=== PATIENT | female | born 1980 | race Caucasian/White ===

== ENCOUNTER 2017-06-23 21:14 | Inpatient (IN) | payer OTHER ==
[~2017-06-23] VITALS: Ht 162.6 cm; Wt 66.5 kg
[2017-06-23 21:19] VITALS: Ht 162.6 cm; Wt 66.5 kg
[2017-06-23] MEDS ORDERED: HYDROCODONE/APAP (5/325) TAB PO STA (23:18)
--- NOTE | 2017-06-23 23:18 | ERD ---
ER Documentation Chief Complaint Date/Time DATE: 06/23/17 TIME: 23:16 Chief Complaint vag bleed today x2 pads, pt was told by OBGYN she might have ectopic preg HPI this -1, presents to the ED 7 weeks vaginal bleeding and cramping. ROS All systems reviewed and are negative except as per history of present illness. Allergies Allergies: Coded Allergies: No Known Allergy (Unverified , 06/23/17) Physical Exam Vitals Vital Signs Date Time Temp Pulse Resp B/P Pulse Ox O2 Delivery O2 Flow Rate FiO2 06/24/17 02:50 98.1 72 18 141/91 94 Room Air 06/23/17 21:19 97.6 75 20 131/84 97 Physical Exam Const: Nourished well-appearing well-hydrated obvious discomfort no acute distress Head: Eyes: ENT: Neck: Resp: Clear to auscultation bilaterally rales wheezes or rhonchi Cardio: Regular rate and rhythm, no murmurs Abd: Soft, tenderness, no CVA tenderness Skin: Back: No midline or flank tenderness Ext: No cyanosis, or edema Neur: Awake and alert Psych: Normal Mood and Affect Result Diagram: 06/23/17 2330 Results 24 hrs Laboratory Tests Test 06/23/17 23:30 06/24/17 00:00 White Blood Count 10.510^3/ul Red Blood Count 4.0010^6/ul Hemoglobin 12.5g/dl Hematocrit 37.1% Mean Corpuscular Volume 92.8fl Mean Corpuscular Hemoglobin 31.3pg Mean Corpuscular Hemoglobin Concent 33.7g/dl Red Cell Distribution Width 12.9% Platelet Count 70566^3/UL Mean Platelet Volume 10.0fl Neutrophils % 75.0% Lymphocytes % 16.3% Monocytes % 6.2% Eosinophils % 1.6% Basophils % 0.5% Nucleated Red Blood Cells % 0.0/100WBC Neutrophils # 7.910^3/ul Lymphocytes # 1.710^3/ul Monocytes # 0.710^3/ul Eosinophils # 0.210^3/ul Basophils # 0.110^3/ul Nucleated Red Blood Cells # 0.010^3/ul Beta HCG, Quantitative 5878.2mIU/ml Urine Color YELLOW Urine Clarity SLIGHTLY CLOUDY Urine pH 5.0 Urine Specific [place] 1.025 Urine Ketones NEGATIVEmg/dL Urine Nitrite NEGATIVEmg/dL Urine Bilirubin NEGATIVEmg/dL Urine Urobilinogen NEGATIVEmg/dL Urine Leukocyte Esterase TRACELeu/ul Urine Microscopic RBC > 182/HPF Urine Microscopic WBC 8/HPF Urine Squamous Epithelial Cells FEW/HPF Urine Bacteria FEW/HPF Urine Mucus MODERATE/HPF Urine Hemoglobin 3+mg/dL Urine Glucose NEGATIVEmg/dL Urine Total Protein 1+mg/dl Current Medications Medications (Trade) Dose Ordered Sig/Mallory Route PRN Reason Start Time Stop Time Status Last Admin Dose Admin Acetaminophen/ Hydrocodone Bitart 1 tab 1 tab ONCE STAT PO 06/23/17 23:18 06/23/17 23:20 DC 06/24/17 00:27 Sodium Chloride (NS) 1,000 ml @ 150 mls/hr Q6H40M IV 06/24/17 01:58 06/24/17 08:37 Acetaminophen (Tylenol Tab) 650 mg ER BRIDGE PRN PO MILD PAIN/FEVER 06/24/17 02:00 06/25/17 01:59 Interpretation text CBC shows no evidence of hemorrhage or infection Beta HCG, Quantitative 5878.2mIU/m Analysis positive for trace leukocytes, microscopic hematuria, this is not an abnormal finding for vaginal bleeding. Positive proteins, no nitrates. Procedures/MDM ROCEDURE: ULTRASOUND OBSTETRICAL CLINICAL INDICATION: 37-year-old female with vaginal bleeding. TECHNIQUE: Multiple sonographic images of the pelvis were obtained utilizing a transabdominal and endovaginal technique. The images were reviewed on a PACS workstation. COMPARISON: None. FINDINGS: The endometrial echo complex is within normal limits and measures 5.9 mm. There is no sonographic evidence for an intrauterine gestation. There is no evidence for free fluid. The right ovary has a normal echotexture and measures 2.1 x 1.2 x 1.3 cm. The left ovary has a normal echotexture and measures 3.4 x 2.7 x 3.1 cm. There is a left ovarian cyst measuring 2.7 x 2.2 x 2.7 cm. There is flow identified within the ovaries bilaterally. There is a right adnexal mass measuring 2.1 x 1.6 x 2.3 cm without evidence for abnormal flow worrisome for an ectopic . IMPRESSION: CALL REPORT: A call report was made to [facility] ER SASHA Lora on June 24, 2017 at 01:14 a.m.. Electronically viewed and signed by .Hans Vance MD, on 06/24/2017 01:18 This 37-year-old female presents to emergency department for evaluation of vaginal bleeding. Patient is -1, 7 weeks started vaginal bleeding 2 days ago with increasing pain and discharge. Patient is not saturating peripads and is hemodynamically stable, emergency room course includes control with [place], Tylenol, IV fluids, try testing negative for anemia or bacterial infection, beta hCG quantitative 5878.2mIU/m. OB ultrasound : No sonographic evidence for an intrauterine gestation. Right adnexal mass suspicious for an ectopic . Clinical correlation is necessary. Left ovarian cyst. On-call labor is , report given, patient will be admitted, supervising physician notified, patient transferred to Main ED room 13. Patient is ambulatory, stable, able to walk to her new room. Med-Surg room pending Departure Diagnosis: Primary Impression: Ectopic Location of ectopic : tubal Intrauterine status: without intrauterine Qualified Code: O00.10 - Tubal without intrauterine Condition: Stable ITZEL ONEILL Jun 23, 2017 23:18
[2017-06-24] LABS: BASOPHIL # 0.1 10^3/ul (0.0-0.1); BASOPHILS % 0.5 % (0.0-2.0); EOSINOPHILS # 0.2 10^3/ul (0.0-0.5); EOSINOPHILS % 1.6 % (0.0-7.0); HEMATOCRIT 37.1 % (37.0-47.0); HEMOGLOBIN 12.5 g/dl (12.0-16.0); LYMPHOCYTES # 1.7 10^3/ul (0.8-2.9); LYMPHOCYTES % 16.3 % (15.0-51.0); MEAN CORPUSCULAR HEMOGLOBIN 31.3 pg (29.0-33.0); MEAN CORPUSCULAR HGB CONC 33.7 g/dl (32.0-37.0); MEAN CORPUSCULAR VOLUME 92.8 fl (82.0-101.0); MONOCYTE # 0.7 10^3/ul (0.3-0.9); MONOCYTES % 6.2 % (0.0-11.0); NEUTROPHIL # 7.9 10^3/ul (1.6-7.5); PLATELET COUNT 251 10^3/UL (140-415); RED CELL DISTRIBUTION WIDTH 12.9 % (11.5-14.5); WHITE BLOOD COUNT 10.5 10^3/ul (4.8-10.8)
[2017-06-24 00:53] LABS: ADD UMIC YES; UR ASCORBIC ACID 20 mg/dL (NEGATIVE); UR BACTERIA FEW /HPF (NONE SEEN); UR BILIRUBIN (Dip) NEGATIVE (NEGATIVE); UR BLOOD (Dip) 3+ mg/dL (NEGATIVE); UR CLARITY SLIGHTLY CLOUDY (CLEAR); UR COLOR YELLOW (YELLOW); UR GLUCOSE (Dip) NEGATIVE (NEGATIVE); UR KETONES (Dip) NEGATIVE (NEGATIVE); UR LEUKOCYTE ESTERASE (Dip) TRACE Leu/ul (NEGATIVE); UR MUCUS MODERATE /HPF (NONE SEEN); UR NITRITE (Dip) NEGATIVE (NEGATIVE); UR RBC > 182 /HPF (0-5); UR SPECIFIC GRAVITY (Dip) 1.025 (1.003-1.030); UR SQUAMOUS EPITHELIAL CELL FEW /HPF (FEW); UR TOTAL PROTEIN (Dip) 1+ mg/dl (NEGATIVE); UR UROBILINOGEN (Dip) NEGATIVE (NEGATIVE)
--- NOTE | 2017-06-24 01:19 | RADRPT ---
PROCEDURE: ULTRASOUND OBSTETRICAL CLINICAL INDICATION: 37-year-old female with vaginal bleeding. TECHNIQUE: Multiple sonographic images of the pelvis were obtained utilizing a transabdominal and endovaginal technique. The images were reviewed on a PACS workstation. COMPARISON: None. FINDINGS: The endometrial echo complex is within normal limits and measures 5.9 mm. There is no sonographic ev idence for an intrauterine gestation. There is no evidence for free fluid. The right ovary has a nor mal echotexture and measures 2.1 x 1.2 x 1.3 cm. The left ovary has a normal echotexture and measur es 3.4 x 2.7 x 3.1 cm. There is a left ovarian cyst measuring 2.7 x 2.2 x 2.7 cm. There is flow iden tified within the ovaries bilaterally. There is a right adnexal mass measuring 2.1 x 1.6 x 2.3 cm w ithout evidence for abnormal flow worrisome for an ectopic . IMPRESSION: 1. No sonographic evidence for an intrauterine gestation. 2. Right adnexal mass suspicious for an ectopic . Clinical correlation is necessary. 3. Left ovarian cyst. CALL REPORT: A call report was made to [facility] ER SASHA Lora on June 24, 2017 at 01:14 a. m.. .Hans Vance MD, MD Date Time Electronically viewed and signed by .Hans Vance MD, MD on 06/24/2017 01:18 .M/
[2017-06-24] MEDS ORDERED: SOD CHLORIDE 0.9% 1,000 ML IV SCH (01:58)
[2017-06-24] MEDS ORDERED: ACETAMINOPHEN 325 MG TAB PO PRN (02:00)
[2017-06-24 02:50] VITALS: TEMP 98.1
--- NOTE | 2017-06-24 03:39 | HP ---
Date/Time of Note Date/Time of Note DATE: 06/24/17 TIME: 03:35 Assessment/Plan VTE Prophylaxis VTE Prophylaxis Intervention: ambulation Lines/Catheters IV Catheter Type (from Nrs): Saline Lock Assessment/Plan Chief Complaint/Hosp Course Lower abdominal pain Discriminitory HCG, non IUP. ultrasound with evidence of RT adnexal mass, questionable for ECtopic No evidence of Hemoperitoneum Stable clinically Left simple ovarian cyst Discussed options of expectant management serial abdominal exam and labs and if stable can proceed with medical management with MTX with close follow up and moniotoring vs Surgical management Risks and benefits and pros and conse of each discussed Explained at HCG level above 5000 , with MTX likely she require more than one dose. Compliance with close follow up,serially with HCG until it is undetectable discussed Patient verbalized understanding Admit to the floor Serial Labs, Hb and vitals Will re evaluate again in am if remain stable . consider surgery if pain continues, anemia or unstable Problems: HPI/ROS Admit Date/Time Admit Date/Time June 24, 2017 Hx of Present Illness I was asked and consulted by ED provider to evaluate this patient for possible ectopic ROS 37-year-old with amenorrhea for 7 weeks and 4 days. She had a private OB/ DIRECTOR OF DISTRIBUTION admission [place] Dr. vann. Reports that had serum hCG done by her DIRECTOR OF DISTRIBUTION 2 days ago. Per patient her level was non-discriminatory and for that reason advised to repeat her serum hCG in 48 hours. She had her blood drawn today at [facility]. Results unavailable. Patient presents with complaint of lower abdominal pain and light bleeding and dizziness.. Her serum hCG today is 5000 range. Had a pelvic ultrasound that showed no evidence of IUP with right adnexal hypoechoic structure concerning for ectopic as well as left ovarian cyst. Past DIRECTOR OF DISTRIBUTION history significant for history of primary infertility for 4 and half years. Underwent 6 rounds of IUI and 2 rounds of IVF. She conceived once with IVF last years status post SAB. This is spontaneous that occurred after her last IVF in August 2016. Past medical history significant for history of hypertension, hypothyroidism As well as depression and anxiety. Subjective hx not possible: other Constitutional: no complaints Eyes: no complaints ENT: no complaints Respiratory: no complaints Cardiovascular: no complaints Gastrointestinal: pain Genitourinary: bleeding Musculoskeletal: no complaints Skin: no complaints Neurologic: no complaints Endocrine: no complaints Lymphatic: no complaints Psychological: no complaints Immunologic: no complaints PMH/Family/Social Past Medical History past medical history: 1. Hypertension 2. Hypothyroidism 3. Anxiety and depression Past Surgical History D&C for SAB Removal of uterine polyp Family History Significant Family History: diabetes Social History Alcohol Use: none Smoking Status: Never smoker Drug Use: none Exam/Review of Systems Vital Signs Vitals Vital Signs Date Time Temp Pulse Resp B/P Pulse Ox O2 Delivery O2 Flow Rate FiO2 06/24/17 02:50 98.1 72 18 141/91 94 Room Air Exam Constitutional: alert, distress, oriented, well developed Psych: nl mood/affect, no complaints Head: atraumatic, normocephalic Eyes: EOMI, nl conjunctiva, nl lids ENMT: nl external ears & nose Neck: supple Respiratory: clear to auscultation, normal air movement Cardiovascular: nl pulses, regular rate and rhythm Gastrointestinal: soft, tender (in the mid to left side of the abdomen, No rebound tenderness, no rigidity, no evidence of acute abdomen.) Musculoskeletal: nl extremities to inspection, nl gait and stance Extremities: normal pulses Neurological: SLOPE HOIST OPERATOR II-XII intact, nl mental status, nl speech, nl strength Skin: nl turgor Labs Result Diagram: 06/23/17 2330 Medications Medications Current Medications Sodium Chloride (NS) 1,000 ml @ 150 mls/hr Q6H40M IV Last administered on 06/24t 03:10; Admin Dose 150 MLS/HR; Start 06/24/17 at 01:58; Stop 06/24/17 at 08 :37 Procedures Procedures PROCEDURE: ULTRASOUND OBSTETRICAL CLINICAL INDICATION: 37-year-old female with vaginal bleeding. TECHNIQUE: Multiple sonographic images of the pelvis were obtained utilizing a transabdominal and endovaginal technique. The images were reviewed on a PACS workstation. COMPARISON: None. FINDINGS: The endometrial echo complex is within normal limits and measures 5.9 mm. There is no sonographic evidence for an intrauterine gestation. There is no evidence for free fluid. The right ovary has a normal echotexture and measures 2.1 x 1.2 x 1.3 cm. The left ovary has a normal echotexture and measures 3.4 x 2.7 x 3.1 cm. There is a left ovarian cyst measuring 2.7 x 2.2 x 2.7 cm. There is flow identified within the ovaries bilaterally. There is a right adnexal mass measuring 2.1 x 1.6 x 2.3 cm without evidence for abnormal flow worrisome for an ectopic . IMPRESSION: 1. No sonographic evidence for an intrauterine gestation. 2. Right adnexal mass suspicious for an ectopic . Clinical correlation is necessary. 3. Left ovarian cyst. ARMINDA JEFFREY MD Jun 24, 2017 03:39
[2017-06-24 04:15] VITALS: BP 153/82; PULSE 68; RESP 17
[2017-06-24] MEDS: LACTATED RINGER'S 1,000 ML IV SCH ×3 (04:39→19:52)
[2017-06-24] MEDS ORDERED: ONDANSETRON INJ 8 MG in DEXTROSE 5% 50 ML IV PRN (05:00)
[2017-06-24 05:39] LABS: ALBUMIN 4.1 g/dl (3.3-4.9); BILIRUBIN,INDIRECT 0.7 mg/dl (0-1.1); BILIRUBIN,TOTAL 0.7 mg/dl (0.2-1.3); TOTAL PROTEIN 6.6 g/dl (6.1-8.1)
[2017-06-24 05:40] LABS: CALCIUM 9.2 mg/dl (8.4-10.2); CREATININE 0.66 mg/dl (0.44-1.00); POTASSIUM 3.9 mmol/L (3.5-5.1)
[2017-06-24] MEDS: LEVOTHYROXINE 100 MCG TAB PO SCH (06:20)
[2017-06-24] MEDS ORDERED: FLUO40CA PO (07:43)
[2017-06-24] MEDS ORDERED: LABE200T3 PO (07:43)
[2017-06-24] MEDS ORDERED: LEVO100T87 PO (07:43)
[2017-06-24 07:54] VITALS: BP 125/74; RESP 18
[2017-06-24] MEDS: morphine 4 MG/ML VIAL IV PRN (09:31)
[2017-06-24] MEDS: LABETALOL 200 MG TAB PO SCH ×2 (10:52→21:00)
[2017-06-24] MEDS: FLUOXETINE 20 MG CAP PO SCH (11:21)
--- NOTE | 2017-06-24 11:52 | QN ---
Documentation Comment June 24, 2017 Hospital note and consult; This patient is 37 years old 2 para 0 with one ectopic and D& C on 2016. She was seen in emergency room and was admitted in the hospital due to suspicion of the of ectopic . The following is the brief description of her condition at admission: ( 37-year-old with amenorrhea for 7 weeks and 4 days. She had a private WEDGER MACHINE admission [place] Dr. vann. Reports that had serum hCG done by her [employer] WELDING MACHINE OPERATOR 2 days ago. Per patient her level was non-discriminatory and for that reason advised to repeat her serum hCG in 48 hours. She had her blood drawn today at [facility]. Results unavailable. Patient presents with complaint of lower abdominal pain and light bleeding and dizziness.. Her serum hCG today is 5000 range. Had a pelvic ultrasound that showed no evidence of IUP with right adnexal hypoechoic structure concerning for ectopic as well as left ovarian cyst. Past ARC WELDING MACHINE OPERATOR history significant for history of primary infertility for 4 and half years. Underwent 6 rounds of IUI and 2 rounds of IVF. She conceived once with IVF last years status post SAB. This is spontaneous that occurred after her last IVF in August 2016. Past medical history significant for history of hypertension, hypothyroidism As well as depression and anxiety.) We have one result of the beta hCG from last night which was 5000 international unit. When I examined her today she was having mild lower abdominal pain. Chest was clear to auscultation and percussion. Heart was normal sinus rhythm no murmur. No CVA tenderness. On pelvic examination she did have mild vaginal bleeding. Cervix was closed. Cervix has slight motion tenderness. It was somewhat difficult to actually palpate any pelvic mass . Ultrasound study today did show hypoechoic structure with high suspicious of ectopic on the right side and also left ovarian cyst was described. Her condition, the ultrasound report ,the lab finding and the suspicion of ectopic and need for surgical intervention or the methotrexate as an alternative management was discussed with patient in detail. She requested us to go ahead with surgery understanding that the tube containing ectopic may be removed which makes her possibility of future less likely . She is scheduled for surgery about 7:00 o'clock this evening. End of dictation , LORI ORTIZ MD Jun 24, 2017 11:52
[2017-06-24 14:00] VITALS: BP 142/80; RESP 18
[2017-06-24] MEDS ORDERED: MIDAZOLAM 1 MG/ML 2 ML INJ ONE (18:48)
[2017-06-24] MEDS ORDERED: PROPOFOL 20 ML ONE ×2 (18:48→20:17)
[2017-06-24] MEDS ORDERED: ROCURONIUM 50 MG INJ ONE (18:48)
[2017-06-24] MEDS ORDERED: METOCLOPRAMIDE 10 MG INJ ONE (18:48)
[2017-06-24] MEDS ORDERED: DIPHENHYDRAMINE 50 MG INJ IV PRN (20:30)
[2017-06-24] MEDS ORDERED: MEPERIDINE 25 MG INJ IV PRN (20:30)
[2017-06-24] MEDS ORDERED: LABETALOL HCL 20MG INJ IV PRN (20:30)
[2017-06-24] MEDS ORDERED: KETOROLAC 30 MG INJ IV PRN (20:30)
[2017-06-24] MEDS ORDERED: EPHEDrine SULFATE 50 MG/5 ML SYG IV PRN (20:30)
[2017-06-24] MEDS ORDERED: ONDANSETRON 4 MG INJ IV PRN (20:30)
[2017-06-24] MEDS ORDERED: FENTAnyl 50 MCG/ML VIAL IV PRN ×2 (20:30)
[2017-06-24] MEDS ORDERED: hydrALAzine 20 MG INJ IV PRN (20:30)
[2017-06-24] MEDS ORDERED: METOCLOPRAMIDE 10 MG INJ IV PRN (20:30)
[2017-06-24] MEDS ORDERED: HYDROmorphONE (0.2 MG/ML) 10ML SYG IV PRN ×3 (20:30)
[2017-06-24] MEDS ORDERED: OXYCODONE/ACETAMINOPHEN (5/325) TAB PO PRN ×2 (20:30)
[2017-06-24] MEDS ORDERED: DEXAMETHASONE 4 MG/ML 1 ML INJ ONE (22:12)
[2017-06-24] MEDS ORDERED: BUPIVACAINE 0.25% (MPF) 10 ML 10 ML VIAL ONE (23:46)
[2017-06-24] MEDS ORDERED: ONDANSETRON 4 MG INJ ONE (23:53)
[2017-06-24] MEDS ORDERED: KETOROLAC 30 MG INJ ONE (23:58)
[2017-06-25] VITALS (20 sets, daily range): BP systolic 111–129; BP diastolic 55–76; PULSE 68–88; RESP 13–21
[2017-06-25] MEDS ORDERED: OXYCODONE/ACETAMINOPHEN (5/325) TAB PO PRN
[2017-06-25] MEDS ORDERED: morphine 2 MG INJ IV PRN
--- NOTE | 2017-06-25 00:21 | OPPN ---
Date/Time of Note Date/Time of Note DATE: 06/25/17 TIME: 00:10 Operative Report Preoperative Diagnosis June 25, 2017 Operative report Preoperative diagnosis possible ectopic Postoperative diagnosis rupture ectopic right salpinx Estimated blood loss about 250 cc Anesthesia general Postoperative Diagnosis same Operation/Procedure Performed Under satisfactory general anesthesia patient was placed in lithotomy position vaginal and abdominal area were prepped and patient was draped. Hoff catheter was placed . Abdominal and genital area was prepped and patient was draped. A bimanual pelvic examination was performed : the uterus appears to be top normal size ,no major adnexal mass was palpated At this time the weighted speculum was placed inside the vagina and anterior lip of the cervix was grasped with tenaculum. Uterine cavity sounded to about 6 cm and a HUMI catheter was inserted and it was inflated with 8 cc of water. At this time the gloves were changed and the procedure continued abdominally by making a small incision at the lower aspect of umbilical area thorough this incision a Veress needle were inserted in the peritoneal cavity and abdominal cavity was insufflated with about 3-1/2 L of gas .. Through the small incision at the umbilical area as well as suprapubic area 2 5 mm trocar were inserted followed by insertion of grasper and the light. In visualizing the abdominal cavity there was evidence of ruptured ectopic with a fairly large amount of blood clots.It appeared the ectopic was in the right tube very near the corner of the uterus . After suctioning the blood clots and irrigation ;at the insertion of the right tube to the cornua of uterus the tissues were cauterized and then they were clipped and cut repeatedly the tube with the ectopic . An attempt was made not to disturb the the blood supply to the ovary in the side. Ovary itself on both sides appear to be normal. The mesosalpinx were cut coagulated The irrigation was performed, blood clots were removed .A thorough inspection was performed to make sure there is no further bleeding at the site of the incision and cornua. The specimen was removed and sent for pathological examination. Then using a Vicryl suture the site of 2 mm incision were approximated. All of the instrument was removed and the incision site was sutured with 4-0 Monocryl. Local l anesthetic was used to control postoperative pain . Hoff catheter was removed and patient was transferred to the recovery room in good and stable condition The specimen was sent for pathology for examination. 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 Anesthesia: general Estimated blood loss: 200 - 250 ml's Transfusion Required none Specimen left salpinx Current Medications Medications (Trade) Dose Ordered Sig/Mallory Route PRN Reason Start Time Stop Time Status Last Admin Dose Admin Acetaminophen/ Hydrocodone Bitart 1 tab 1 tab ONCE STAT PO 06/23/17 23:18 06/23/17 23:20 DC 06/24/17 00:27 Sodium Chloride (NS) 1,000 ml @ 150 mls/hr Q6H40M IV 06/24/17 01:58 06/24/17 08:37 DC 06/24/17 03:10 Acetaminophen 650 mg 650 mg ER BRIDGE PRN PO MILD PAIN/FEVER 06/24/17 02:00 06/25/17 01:59 DC Lactated Ringer's (Lr) 1,000 ml @ 125 mls/hr Q8H IV 06/24/17 03:52 06/25/17 13:23 DC 06/24/17 12:13 Labetalol HCl 200 mg 200 mg BID PO 06/24/17 09:00 06/25/17 13:23 DC 06/25/17 08:55 Ondansetron HCl/ Dextrose (Zofran Inj/D5W) 54 ml @ 108 mls/hr Q8H PRN IV NAUSEA AND/OR VOMITING 06/24/17 05:00 06/25/17 13:23 DC Morphine Sulfate (morphine) 3 mg Q3H PRN IV PAIN 06/24/17 05:00 06/25/17 13:23 DC 06/25/17 01:39 Fluoxetine HCl (Prozac) 40 mg DAILY PO 06/24/17 09:00 06/25/17 13:23 DC 06/25/17 08:54 Levothyroxine Sodium (Synthroid) 100 mcg DAILY@06 PO 06/24/17 06:00 06/25/17 13:23 DC 06/25/17 05:30 Rocuronium [place] 50 mg 50 mg STK-MED ONCE .ROUTE 06/24/17 18:48 06/24/17 18:49 DC Propofol (Diprivan) 20 ml @ ud STK-MED ONCE .ROUTE 06/24/17 18:48 06/24/17 18:49 DC Midazolam HCl (Versed) 2 mg STK-MED ONCE .ROUTE 06/24/17 18:48 06/24/17 18:49 DC Metoclopramide HCl 10 mg 10 mg STK-MED ONCE .ROUTE 06/24/17 18:48 06/24/17 18:49 DC Propofol 20 ml @ ud STK-MED ONCE .ROUTE 06/24/17 20:17 06/24/17 20:18 DC Fentanyl (Sublimaze) 5 ml @ ud STK-MED ONCE .ROUTE 06/24/17 20:18 06/24/17 20:19 DC Hydromorphone HCl (Dilaudid (Rec)) 0.2 mg PACU ORDER PRN IV MILD PAIN LEVEL 1-3 06/24/17 20:30 06/25/17 01:00 DC Hydromorphone HCl (Dilaudid (Rec)) 0.4 mg PACU ORDER PRN IV MODERATE PAIN LEVEL 4-6 06/24/17 20:30 06/25/17 01:00 DC Hydromorphone HCl (Dilaudid (Rec)) 0.6 mg PACU ORDER PRN IV SEVERE PAIN LEVEL 7-10 06/24/17 20:30 06/25/17 01:00 DC Fentanyl (Sublimaze) 25 mcg PACU ORDER PRN IV MILD PAIN LEVEL 1-3 06/24/17 20:30 06/25/17 01:00 DC Fentanyl (Sublimaze) 50 mcg PACU ODER PRN IV MODERATE PAIN LEVEL 4-6 06/24/17 20:30 06/25/17 01:00 DC 06/25/17 00:38 Fentanyl (Sublimaze) 75 mcg PACU ORDER PRN IV SEVERE PAIN LEVEL 7-10 06/24/17 20:30 06/25/17 01:00 DC Ketorolac Tromethamine (Toradol) 30 mg PACU ORDER PRN IV FOR PAIN AFTER IV NARCOTIC MED 06/24/17 20:30 06/25/17 01:00 DC 06/25/17 00:32 Oxycodone/ Acetaminophen (Percocet (5/ 325)) 1 tab PACU ORDER PRN PO PAIN LEVEL 1-5 06/24/17 20:30 06/25/17 01:00 DC Oxycodone/ Acetaminophen (Percocet (5/ 325)) 2 tab PACU ORDER PRN PO PAIN LEVEL 6-10 06/24/17 20:30 06/25/17 01:00 DC Ondansetron HCl (Zofran Inj) 4 mg PACU ORDER PRN IV NAUSEA AND/OR VOMITING 06/24/17 20:30 06/25/17 01:00 DC 06/25/17 00:32 Metoclopramide HCl (Reglan) 10 mg PACU ORDER PRN IV NAUSEA AND/OR VOMITING 06/24/17 20:30 06/25/17 01:00 DC Labetalol HCl (Labetalol) 5 mg PACU ORDER PRN IV HIGH BLOOD PRESSURE 06/24/17 20:30 06/25/17 01:00 DC Hydralazine HCl (Apresoline) 5 mg PACU ORDER PRN IV HIGH BLOOD PRESSURE 06/24/17 20:30 06/25/17 01:00 DC Ephedrine Sulfate 5 mg PACU ORDER PRN IV MAP LESS THAN 60 06/24/17 20:30 06/25/17 01:00 DC Meperidine HCl (Demerol) 25 mg PACU ORDER PRN IV POST-OP RIGORS 06/24/17 20:30 06/25/17 01:00 DC Diphenhydramine HCl (Benadryl) 25 mg PACU ORDER PRN IV PRURITUS 06/24/17 20:30 06/25/17 01:00 DC Dexamethasone (Decadron) 4 mg STK-MED ONCE .ROUTE 06/24/17 22:12 06/24/17 22:13 DC Bupivacaine HCl (Marcaine 0.25% (Mpf) 10 ml) 30 ml STK-MED ONCE .ROUTE 06/24/17 23:46 06/24/17 23:47 DC 06/25/17 00:02 Ondansetron HCl (Zofran Inj) 4 mg STK-MED ONCE .ROUTE 06/24/17 23:53 06/24/17 23:54 DC Ketorolac Tromethamine 30 mg 30 mg STK-MED ONCE .ROUTE 06/24/17 23:58 06/24/17 23:59 DC Dextrose/Sodium Chloride (D5-1/2ns) 1,000 ml @ 125 mls/hr Q8H IV 06/25/17 00:00 06/25/17 13:23 DC 06/25/17 08:57 Oxycodone/ Acetaminophen (Percocet (5/ 325)) 1 tab Q4H PRN PO PAIN 06/25/17 00:00 06/25/17 13:23 DC 06/25/17 10:55 Morphine Sulfate (morphine) 2 mg Q4H PRN IV PAIN LEVEL 7-10 06/25/17 00:00 06/25/17 13:23 DC Current Medications Medications (Trade) Dose Ordered Sig/Mallory Route PRN Reason Start Time Stop Time Status Last Admin Dose Admin Acetaminophen/ Hydrocodone Bitart 1 tab 1 tab ONCE STAT PO 06/23/17 23:18 06/23/17 23:20 DC 06/24/17 00:27 Sodium Chloride (NS) 1,000 ml @ 150 mls/hr Q6H40M IV 06/24/17 01:58 06/24/17 08:37 DC 06/24/17 03:10 Acetaminophen 650 mg 650 mg ER BRIDGE PRN PO MILD PAIN/FEVER 06/24/17 02:00 06/25/17 01:59 DC Lactated Ringer's (Lr) 1,000 ml @ 125 mls/hr Q8H IV 06/24/17 03:52 06/25/17 13:23 DC 06/24/17 12:13 Labetalol HCl 200 mg 200 mg BID PO 06/24/17 09:00 06/25/17 13:23 DC 06/25/17 08:55 Ondansetron HCl/ Dextrose (Zofran Inj/D5W) 54 ml @ 108 mls/hr Q8H PRN IV NAUSEA AND/OR VOMITING 06/24/17 05:00 06/25/17 13:23 DC Morphine Sulfate (morphine) 3 mg Q3H PRN IV PAIN 06/24/17 05:00 06/25/17 13:23 DC 06/25/17 01:39 Fluoxetine HCl (Prozac) 40 mg DAILY PO 06/24/17 09:00 06/25/17 13:23 DC 06/25/17 08:54 Levothyroxine Sodium (Synthroid) 100 mcg DAILY@06 PO 06/24/17 06:00 06/25/17 13:23 DC 06/25/17 05:30 Rocuronium [place] 50 mg 50 mg STK-MED ONCE .ROUTE 06/24/17 18:48 06/24/17 18:49 DC Propofol (Diprivan) 20 ml @ ud STK-MED ONCE .ROUTE 06/24/17 18:48 06/24/17 18:49 DC Midazolam HCl (Versed) 2 mg STK-MED ONCE .ROUTE 06/24/17 18:48 06/24/17 18:49 DC Metoclopramide HCl 10 mg 10 mg STK-MED ONCE .ROUTE 06/24/17 18:48 06/24/17 18:49 DC Propofol 20 ml @ ud STK-MED ONCE .ROUTE 06/24/17 20:17 06/24/17 20:18 DC Fentanyl (Sublimaze) 5 ml @ ud STK-MED ONCE .ROUTE 06/24/17 20:18 06/24/17 20:19 DC Hydromorphone HCl (Dilaudid (Rec)) 0.2 mg PACU ORDER PRN IV MILD PAIN LEVEL 1-3 06/24/17 20:30 06/25/17 01:00 DC Hydromorphone HCl (Dilaudid (Rec)) 0.4 mg PACU ORDER PRN IV MODERATE PAIN LEVEL 4-6 06/24/17 20:30 06/25/17 01:00 DC Hydromorphone HCl (Dilaudid (Rec)) 0.6 mg PACU ORDER PRN IV SEVERE PAIN LEVEL 7-10 06/24/17 20:30 06/25/17 01:00 DC Fentanyl (Sublimaze) 25 mcg PACU ORDER PRN IV MILD PAIN LEVEL 1-3 06/24/17 20:30 06/25/17 01:00 DC Fentanyl (Sublimaze) 50 mcg PACU ODER PRN IV MODERATE PAIN LEVEL 4-6 06/24/17 20:30 06/25/17 01:00 DC 06/25/17 00:38 Fentanyl (Sublimaze) 75 mcg PACU ORDER PRN IV SEVERE PAIN LEVEL 7-10 06/24/17 20:30 06/25/17 01:00 DC Ketorolac Tromethamine (Toradol) 30 mg PACU ORDER PRN IV FOR PAIN AFTER IV NARCOTIC MED 06/24/17 20:30 06/25/17 01:00 DC 06/25/17 00:32 Oxycodone/ Acetaminophen (Percocet (5/ 325)) 1 tab PACU ORDER PRN PO PAIN LEVEL 1-5 06/24/17 20:30 06/25/17 01:00 DC Oxycodone/ Acetaminophen (Percocet (5/ 325)) 2 tab PACU ORDER PRN PO PAIN LEVEL 6-10 06/24/17 20:30 06/25/17 01:00 DC Ondansetron HCl (Zofran Inj) 4 mg PACU ORDER PRN IV NAUSEA AND/OR VOMITING 06/24/17 20:30 06/25/17 01:00 DC 06/25/17 00:32 Metoclopramide HCl (Reglan) 10 mg PACU ORDER PRN IV NAUSEA AND/OR VOMITING 06/24/17 20:30 06/25/17 01:00 DC Labetalol HCl (Labetalol) 5 mg PACU ORDER PRN IV HIGH BLOOD PRESSURE 06/24/17 20:30 06/25/17 01:00 DC Hydralazine HCl (Apresoline) 5 mg PACU ORDER PRN IV HIGH BLOOD PRESSURE 06/24/17 20:30 06/25/17 01:00 DC Ephedrine Sulfate 5 mg PACU ORDER PRN IV MAP LESS THAN 60 06/24/17 20:30 06/25/17 01:00 DC Meperidine HCl (Demerol) 25 mg PACU ORDER PRN IV POST-OP RIGORS 06/24/17 20:30 06/25/17 01:00 DC Diphenhydramine HCl (Benadryl) 25 mg PACU ORDER PRN IV PRURITUS 06/24/17 20:30 06/25/17 01:00 DC Dexamethasone (Decadron) 4 mg STK-MED ONCE .ROUTE 06/24/17 22:12 06/24/17 22:13 DC Bupivacaine HCl (Marcaine 0.25% (Mpf) 10 ml) 30 ml STK-MED ONCE .ROUTE 06/24/17 23:46 06/24/17 23:47 DC 06/25/17 00:02 Ondansetron HCl (Zofran Inj) 4 mg STK-MED ONCE .ROUTE 06/24/17 23:53 06/24/17 23:54 DC Ketorolac Tromethamine 30 mg 30 mg STK-MED ONCE .ROUTE 06/24/17 23:58 06/24/17 23:59 DC Dextrose/Sodium Chloride (D5-1/2ns) 1,000 ml @ 125 mls/hr Q8H IV 06/25/17 00:00 06/25/17 13:23 DC 06/25/17 08:57 Oxycodone/ Acetaminophen (Percocet (5/ 325)) 1 tab Q4H PRN PO PAIN 06/25/17 00:00 06/25/17 13:23 DC 06/25/17 10:55 Morphine Sulfate (morphine) 2 mg Q4H PRN IV PAIN LEVEL 7-10 06/25/17 00:00 06/25/17 13:23 DC The left salpinx with evidence of ectopic was sent for pathology exam Grafts/Implants none Complications none LORI ORTIZ MD Jun 25, 2017 00:20
[2017-06-25] MEDS: FENTAnyl 50 MCG/ML VIAL IV PRN ×2 (00:32→00:38)
[2017-06-25] MEDS: DEXTROSE 5%-0.45% NACL 1,000 ML IV SCH ×2 (01:38→08:57)
[2017-06-25] MEDS: morphine 4 MG/ML VIAL IV PRN (01:39)
[2017-06-25] MEDS: LACTATED RINGER'S 1,000 ML IV SCH (03:52)
[2017-06-25 04:12] LABS: ADD UMIC YES; UR AMORPHOUS CRYSTAL MODERATE /HPF (NONE SEEN); UR ASCORBIC ACID NEGATIVE (NEGATIVE); UR BACTERIA FEW /HPF (NONE SEEN); UR BILIRUBIN (Dip) NEGATIVE (NEGATIVE); UR BLOOD (Dip) 1+ mg/dL (NEGATIVE); UR CLARITY CLOUDY (CLEAR); UR COLOR YELLOW (YELLOW); UR GLUCOSE (Dip) NEGATIVE (NEGATIVE); UR KETONES (Dip) 1+ mg/dL (NEGATIVE); UR LEUKOCYTE ESTERASE (Dip) NEGATIVE Leu/ul (NEGATIVE); UR NITRITE (Dip) NEGATIVE (NEGATIVE); UR RBC 3 /HPF (0-5); UR TOTAL PROTEIN (Dip) NEGATIVE (NEGATIVE); UR UROBILINOGEN (Dip) NEGATIVE (NEGATIVE)
[2017-06-25 05:16] LABS: ABNORMAL IP MESSAGE 1; BASOPHILS % 0.1 % (0.0-2.0); HEMATOCRIT 32.9 % (37.0-47.0); HEMOGLOBIN 10.9 g/dl (12.0-16.0); LYMPHOCYTES # 0.6 10^3/ul (0.8-2.9); MEAN CORPUSCULAR HEMOGLOBIN 30.5 pg (29.0-33.0); MEAN CORPUSCULAR HGB CONC 33.1 g/dl (32.0-37.0); MEAN CORPUSCULAR VOLUME 92.2 fl (82.0-101.0); MEAN PLATELET VOLUME 10.2 fl (7.4-10.4); MONOCYTE # 0.1 10^3/ul (0.3-0.9); MONOCYTES % 0.9 % (0.0-11.0); NEUTROPHIL # 10.9 10^3/ul (1.6-7.5); NEUTROPHILS % 93.7 % (39.0-77.0); PLATELET COUNT 229 10^3/UL (140-415); RED BLOOD COUNT 3.57 10^6/ul (4.20-5.40); RED CELL DISTRIBUTION WIDTH 12.6 % (11.5-14.5); WHITE BLOOD COUNT 11.6 10^3/ul (4.8-10.8)
[2017-06-25] MEDS: LEVOTHYROXINE 100 MCG TAB PO SCH (05:30)
[2017-06-25 05:34] LABS: POSITIVE DIFF @See below
[2017-06-25] MEDS: FLUOXETINE 20 MG CAP PO SCH (08:54)
[2017-06-25] MEDS: LABETALOL 200 MG TAB PO SCH (08:55)
--- NOTE | 2017-06-25 11:51 | PD.PPDC ---
CONTACT WORKER Discharge Instruction Diagnosis Final Diagnosis: ectopic Condition Patient Condition: Fair Diet Diet: Resume Regular Diet Activity/Restrictions Return to Work or School: Jul 12, 2017 (2 weeks) Follow-up Follow-up with Physician: 2, Week/Weeks Return to clinic for TELETYPE CLERK Instructions: Fever greater than 101 Chills Worsening abdominal pain Surgical Instructions: Incisional Drainage Incisional Redness GIOVANNI MURCIA Jun 25, 2017 11:51
--- NOTE | 2017-06-25 11:56 | PN ---
Date/Time of Note Date/Time of Note DATE: 06/25/17 TIME: 11:54 OB Subjective Subjective Subjective Patient reports abdominal pain. Tolerating regular diet and passing flatus. OB Objective Objective Objective Gen: NAD Abd: I-C/D/I OB Assessment/Plan Other Assessment: POD1 s/p laparoscopic R. salpingectomy for ectopic Other plan: Discharge home. F/u in 2 weeks with Patient Services Technician. GIOVANNI MURCIA Jun 25, 2017 11:56
--- NOTE | 2017-06-25 12:01 | DS ---
Date/Time of Note Date/Time of Note DATE: 06/25/17 TIME: 11:57 Discharge Summary Admission/Discharge Info Admit Date/Time Jun 24, 2017 at 02:00 Discharge Date/Time Discharge Diagnosis ectopic s/p laparoscopic R. salpingectomy Patient Condition: Fair Procedures Laparoscopic R. salpingectomy Hx of Present Illness I was asked and consulted by ED provider to evaluate this patient for possible ectopic Hospital Course Lower abdominal pain Discriminitory HCG, non IUP. ultrasound with evidence of RT adnexal mass, questionable for ECtopic No evidence of Hemoperitoneum Stable clinically Left simple ovarian cyst Discussed options of expectant management serial abdominal exam and labs and if stable can proceed with medical management with MTX with close follow up and moniotoring vs Surgical management Risks and benefits and pros and conse of each discussed Explained at HCG level above 5000 , with MTX likely she require more than one dose. Compliance with close follow up,serially with HCG until it is undetectable discussed Patient verbalized understanding Admit to the floor Serial Labs, Hb and vitals Will re evaluate again in am if remain stable . consider surgery if pain continues, anemia or unstable Home Meds Reported Medications Fluoxetine Hcl* (Fluoxetine Hcl*) 40 Mg Capsule, 40 MG PO DAILY, CAP 06/24/17 Levothyroxine Sodium* (Levothyroxine Sodium*) 100 Mcg Tablet, 100 MCG PO BEFORE BREAKFAST, #30 TAB 06/24/17 Labetalol Hcl (Normodyne) 200 Mg Tablet, 200 MG PO BID, TAB 06/24/17 Primary Care Provider Care Physician No Primary Time spent on discharge: > 30 minutes Pending Labs Laboratory Tests Test 06/24/17 15:11 06/24/17 17:31 06/25/17 00:15 06/25/17 04:35 Hemoglobin 12.1g/dl (12.0-16.0) 11.8g/dl (12.0-16.0) 10.9g/dl (12.0-16.0) Urine Color YELLOW (YELLOW) Urine Clarity CLOUDY (CLEAR) Urine pH 8.0 (5.0-9.0) Urine Specific [place] 1.010 (1.003-1.030) Urine Ketones 1+mg/dL (NEGATIVE) Urine Nitrite NEGATIVEmg/dL (NEGATIVE) Urine Bilirubin NEGATIVEmg/dL (NEGATIVE) Urine Urobilinogen NEGATIVEmg/dL (NEGATIVE) Urine Leukocyte Esterase NEGATIVELeu/ul (NEGATIVE) Urine Microscopic RBC 3/HPF (0-5) Urine Microscopic WBC 1/HPF (0-5) Urine Amorphous Crystals MODERATE/HPF (NONE SEEN) Urine Bacteria FEW/HPF (NONE SEEN) Urine Hemoglobin 1+mg/dL (NEGATIVE) Urine Glucose NEGATIVEmg/dL (NEGATIVE) Urine Total Protein NEGATIVEmg/dl (NEGATIVE) White Blood Count 11.610^3/ul (4.8-10.8) Red Blood Count 3.5710^6/ul (4.20-5.40) Hematocrit 32.9% (37.0-47.0) Mean Corpuscular Volume 92.2fl (82.0-101.0) Mean Corpuscular Hemoglobin 30.5pg (29.0-33.0) Mean Corpuscular Hemoglobin Concent 33.1g/dl (32.0-37.0) Red Cell Distribution Width 12.6% (11.5-14.5) Platelet Count 62816^3/UL (140-415) Mean Platelet Volume 10.2fl (7.4-10.4) Neutrophils % 93.7% (39.0-77.0) Lymphocytes % 5.0% (15.0-51.0) Monocytes % 0.9% (0.0-11.0) Eosinophils % 0.0% (0.0-7.0) Basophils % 0.1% (0.0-2.0) Nucleated Red Blood Cells % 0.0/100WBC (0.0-0.0) Neutrophils # 10.910^3/ul (1.6-7.5) Lymphocytes # 0.610^3/ul (0.8-2.9) Monocytes # 0.110^3/ul (0.3-0.9) Eosinophils # 0.010^3/ul (0.0-0.5) Basophils # 0.010^3/ul (0.0-0.1) Nucleated Red Blood Cells # 0.010^3/ul (0.0-0.0) GIOVANNI MURCIA Jun 25, 2017 12:01
== END 2017-06-25 12:57 | disposition home or self-care (01) | DRG 777 ==
LOC: FTE 21:14 → MS1 06-24 02:00
PROVIDERS: ADMIT Obstetrics & Gynecology Obstetrics; ATTEND Obstetrics & Gynecology Obstetrics
PROC: 0UT54ZZ Resection of Right Fallopian Tube, Percutaneous Endoscopic Approach (ICD-10-PCS; 2017-06-24)
PROC: 10T24ZZ Resection of Products of Conception, Ectopic, Percutaneous Endoscopic Approach (ICD-10-PCS; principal; 2017-06-24 19:30)
DX: O00.10 Tubal pregnancy without intrauterine pregnancy (principal)
CPT/HCPCS: 76801; 76817; 80048; 80076; 81001; 84702; 85018; 85025; 86850; 86900; 86901; 87086; 96360; J1100; J1885; J2250; J2270; J2405; J2765; J3010; J7030; J7042; J7120